=== PATIENT | male | born 1940 | race Caucasian/White ===

== ENCOUNTER 2022-03-14 09:19 | Day surgery (SDC) | payer MEDICARE ==
[~2022-03-14] VITALS: Ht 177.8 cm; Wt 99.4 kg
[2022-03-14] MEDS ORDERED: Bystolic2.5 MG PO (09:43)
[2022-03-14] MEDS ORDERED: LOSA25 PO (09:43)
[2022-03-14] MEDS ORDERED: PRAVASTATIN SOD40 MG PO (09:44)
[2022-03-14] MEDS ORDERED: LEVSOD75 PO (09:44)
[2022-03-14] MEDS ORDERED: SILD25T PO ×2 (09:45→09:48)
--- NOTE | 2022-03-14 11:38 | NUR ---
03/14/22 1138 CHERRI GUTIÉRREZ IV REMOVED AT 1145/WDL SECOND BAG FLUIDS 354ML REMAIN NS
== END 2022-03-14 11:48 | disposition home or self-care (01) ==
LOC: ORSCSDS 09:19
PROVIDERS: Student in an Organized Health Care Education/Training Program
PROC: 08RJ3JZ Replacement of Right Lens with Synthetic Substitute, Percutaneous Approach (ICD-10-PCS; principal; 2022-03-14 10:45)
DX: H25.11 Age-related nuclear cataract, right eye (principal); I10 Essential (primary) hypertension; E78.00 Pure hypercholesterolemia, unspecified; Z79.899 Other long term (current) drug therapy
CPT/HCPCS: J1120; J2001; J2250; J3010; J7040; V2632

== ENCOUNTER 2022-04-04 10:06 | Day surgery (SDC) | payer MEDICARE ==
[~2022-04-04] VITALS: Ht 177.8 cm; Wt 99.4 kg
[~2022-04-04 10:06] MED LIST: Bystolic2.5 MG PO; LEVSOD75 PO; LOSA25 PO; PRAVASTATIN SOD40 MG PO; SILD25T PO
--- NOTE | 2022-04-04 10:22 | NUR ---
04/04/22 1022 Dilma Osei TETRACAINE DROP IN LEFT EYE AT 1020 PLEDGET IN LEFT EYE AT 1022
== END 2022-04-04 11:37 | disposition home or self-care (01) ==
LOC: ORSCSDS 10:06
PROVIDERS: Student in an Organized Health Care Education/Training Program
PROC: 08DK3ZZ Extraction of Left Lens, Percutaneous Approach (ICD-10-PCS; principal; 2022-04-04 11:30)
DX: H25.12 Age-related nuclear cataract, left eye (principal); Z96.1 Presence of intraocular lens; I10 Essential (primary) hypertension; I35.0 Nonrheumatic aortic (valve) stenosis; E03.9 Hypothyroidism, unspecified; Z79.899 Other long term (current) drug therapy
CPT/HCPCS: J2001; J2250; J7040; V2632